=== PATIENT | female | born 1975 | race Caucasian/White ===

== ENCOUNTER 2017-01-20 19:36 | Emergency (ER) | payer MEDICAID ==
[~2017-01-20] VITALS: Ht 177.8 cm; Wt 61.5 kg
[~2017-01-20 19:36] MED LIST: ADAL40PE IJ; COLE1TAB2; OMEP20CA9 PO
[2017-01-20] MEDS ORDERED: MORPHINE SULFATE 4 MG/ML, 1ML ONE ×2 (20:24→22:40)
[2017-01-20] MEDS ORDERED: ONDANSETRON 2MG/ML, 2ML ONE (20:24)
[2017-01-20] MEDS ORDERED: DIPHENHYDRAMINE 50 MG/ML, 1ML ONE ×2 (20:28→22:42)
[2017-01-20] MEDS ORDERED: SODIUM CHLORIDE 0.9% 1,000ML IVBOLUS ONE (20:30)
[2017-01-20] MEDS ORDERED: ONDANSETRON 2MG/ML, 2ML IVPush ONE (20:30)
[2017-01-20] MEDS ORDERED: SODIUM CHLORIDE FLUSH 10ML SYR IVF ONE (20:30)
[2017-01-20] MEDS ORDERED: OMNIPAQUE 350 MG/ML, 100ML BOTTLE ONE (20:32)
[2017-01-20] MEDS: MORPHINE SULFATE 4 MG/ML, 1ML IVPush PRN ×2 (20:44→23:17)
[2017-01-20 21:03] LABS: BLOOD UREA NITROGEN 7 mg/dL (7-18)
[2017-01-20 23:22] VITALS: BP 98/62
[2017-01-20] MEDS ORDERED: DIPHENHYDRAMINE 50 MG/ML, 1ML IVPush ONE (23:30)
== END 2017-01-20 23:41 | disposition home or self-care (01) ==
LOC: ED 21:50
DX: K63.2 Fistula of intestine (principal); K50.00 Crohn's disease of small intestine without complications; Z88.0 Allergy status to penicillin; Z90.49 Acquired absence of other specified parts of digestive tract; Z88.5 Allergy status to narcotic agent; Z88.8 Allergy status to other drugs, medicaments and biological substances; Z90.710 Acquired absence of both cervix and uterus; F17.200 Nicotine dependence, unspecified, uncomplicated
CPT/HCPCS: 36415; 72193; 80048; 82040; 85025; 96361; 96374; 96375; 96376; 99285; J1200; J2405; J7030; Q9967

== ENCOUNTER 2017-03-12 21:22 | Emergency (ER) | payer MEDICAID ==
[~2017-03-12] VITALS: Ht 177.8 cm; Wt 60.2 kg
[2017-03-12] MEDS ORDERED: DIPHENHYDRAMINE 50 MG/ML, 1ML IVPush ONE (22:00)
[2017-03-12] MEDS ORDERED: SODIUM CHLORIDE FLUSH 10ML SYR IVF ONE (22:00)
[2017-03-12] MEDS ORDERED: MORPHINE SULFATE 4 MG/ML, 1ML ONE ×2 (22:03→23:07)
[2017-03-12] MEDS ORDERED: DIPHENHYDRAMINE 50 MG/ML, 1ML ONE (22:03)
[2017-03-12] MEDS: MORPHINE SULFATE 4 MG/ML, 1ML IVPush PRN ×2 (22:41→23:11)
[2017-03-12] MEDS ORDERED: VEDO300V IV (22:44)
[2017-03-12] MEDS ORDERED: CIPR500T87 PO (22:45)
[2017-03-12] MEDS ORDERED: METR500T PO (22:45)
[2017-03-12 22:51] LABS: BLOOD UREA NITROGEN 7 mg/dL (7-18)
[2017-03-12 22:58] LABS: HEMATOCRIT 45.5 % (34.6-47.8); HEMOGLOBIN 15.2 g/dL (11.7-16.4); WHITE BLOOD COUNT 10.6 x10^3/uL (3.4-10)
[2017-03-13 00:46] VITALS: BP 111/63
[2017-03-13] MEDS ORDERED: OMNIPAQUE 350 MG/ML, 100ML BOTTLE ONE (02:53)
== END 2017-03-13 00:51 | disposition home or self-care (01) ==
LOC: ED 23:04
DX: L03.315 Cellulitis of perineum (principal); K50.913 Crohn's disease, unspecified, with fistula; Z90.710 Acquired absence of both cervix and uterus
CPT/HCPCS: 36415; 72193; 80048; 82040; 85025; 96374; 96375; 96376; 99285; J1200; Q9967

== ENCOUNTER 2017-03-23 17:08 | Inpatient (IN) | payer MEDICAID ==
[~2017-03-23] VITALS: Ht 177.8 cm; Wt 60.0 kg
[~2017-03-23 17:08] MED LIST changes: +CIPR500T87 PO; +METR500T PO; +VEDO300V IV
[2017-03-23 18:00] VITALS: BP 101/68
[2017-03-23] MEDS ORDERED: OXYcodone 5 MG/5 ML ORAL.SOL UDC PO PRN (18:00)
[2017-03-23] MEDS ORDERED: ACETAMINOPHEN 325 MG TABLET PO PRN (18:00)
[2017-03-23] MEDS ORDERED: PLEASE ENTER HEIGHT AND WEIGHT MC SCH (18:00)
[2017-03-23] MEDS ORDERED: ONDANSETRON 2MG/ML, 2ML IVPush PRN (18:00)
[2017-03-23] MEDS ORDERED: morphine SULFATE 10 MG/ML, 1ML IV PRN (18:00)
[2017-03-23] MEDS ORDERED: PROMETHAZINE 25 MG/ML, 1ML IV PRN (18:00)
[2017-03-23] MEDS ORDERED: hydrALAzine 20 MG/ML, 1ML IV PRN (18:00)
[2017-03-23] MEDS ORDERED: LORazepam 2 MG/ML, 1ML IVPush PRN (18:00)
[2017-03-23] MEDS ORDERED: METOPROLOL 1 MG/ML, 5ML IV PRN (18:00)
[2017-03-23] MEDS ORDERED: LABETALOL 5MG/ML, 20ML IV PRN (18:00)
[2017-03-23] MEDS ORDERED: ALBUTEROL SULFATE 2.5 MG/3 ML NPPB PRN (18:00)
[2017-03-23] MEDS ORDERED: EPHEDRINE 50 MG/ML, 1ML IVPush PRN (18:00)
[2017-03-23] MEDS ORDERED: PROPOFOL 10 MG/ML, 20ML ONE (19:51)
[2017-03-23] MEDS ORDERED: BUPIVACAINE/PF 0.5% ONE (19:54)
[2017-03-23] MEDS ORDERED: EPINEPHRINE 1 MG/ML, 1ML ONE (19:54)
[2017-03-23] MEDS ORDERED: FENTANYL PF 100 MCG/2ML ONE ×4 (20:02→22:00)
[2017-03-23] MEDS ORDERED: MIDAZOLAM 1 MG/ML, 2ML ONE (20:02)
[2017-03-23] MEDS ORDERED: CEFOTETAN PMX 1GM/50ML 50 ML ONE (20:13)
[2017-03-23] MEDS ORDERED: ONDANSETRON 2MG/ML, 2ML ONE (20:15)
[2017-03-23] MEDS ORDERED: DEXAMETHASONE 4 MG/ML, 1ML ONE (20:15)
[2017-03-23] MEDS ORDERED: MORPHINE SULFATE 4 MG/ML, 1ML ONE (20:22)
[2017-03-23] MEDS ORDERED: MEPERIDINE/PF 25MG/0.5ML ONE (20:44)
[2017-03-23] MEDS: MEPERIDINE/PF 25MG/0.5ML IVPush PRN ×2 (20:46→21:55)
[2017-03-23] MEDS ORDERED: DIPHENHYDRAMINE 50 MG/ML, 1ML ONE (21:09)
[2017-03-23] MEDS ORDERED: OXYcodone 5 MG/5 ML ORAL.SOL UDC ONE (21:09)
[2017-03-23] MEDS ORDERED: MEPERIDINE/PF 50 MG/ML ONE (21:29)
[2017-03-23] MEDS ORDERED: DIPHENHYDRAMINE 50 MG/ML, 1ML IVPush ONE (21:30)
[2017-03-23] MEDS: FENTANYL PF 100 MCG/2ML IV PRN ×2 (21:50→21:59)
[2017-03-23] MEDS ORDERED: LORazepam 2 MG/ML, 1ML ONE (22:05)
[2017-03-23] MEDS ORDERED: OXYC-306 PO (23:02)
[2017-03-23] MEDS ORDERED: LIDO35.46 EXT (23:05)
[2017-03-23] MEDS ORDERED: SULF1TAB24 PO (23:14)
== END 2017-03-23 23:43 | disposition home or self-care (01) | DRG 348 ==
LOC: 4NOR 17:08
PROVIDERS: ADMIT Colon & Rectal Surgery; ATTEND Colon & Rectal Surgery
PROC: 0DQQ0ZZ Repair Anus, Open Approach (ICD-10-PCS; 2017-03-23)
PROC: 0D9Q0ZZ Drainage of Anus, Open Approach (ICD-10-PCS; principal; 2017-03-23 18:30)
DX: K50.914 Crohn's disease, unspecified, with abscess (principal); F17.210 Nicotine dependence, cigarettes, uncomplicated; K50.913 Crohn's disease, unspecified, with fistula; K21.9 Gastro-esophageal reflux disease without esophagitis; K60.3 Anal fistula; Z88.8 Allergy status to other drugs, medicaments and biological substances; Z90.49 Acquired absence of other specified parts of digestive tract; Z90.710 Acquired absence of both cervix and uterus
CPT/HCPCS: 87015; 87070; 87075; 87102; 87116; 87205; 87206; J0171; J1100; J2175; J2250; J2405; J2704; J3010; J3490; C1760; J1200; J2060; S0074

== ENCOUNTER 2017-05-30 23:31 | Inpatient (IN) | payer MEDICAID ==
[~2017-05-30] VITALS: Ht 177.8 cm; Wt 63.1 kg
[~2017-05-30 23:31] MED LIST changes: +LIDO35.46 EXT; +OXYC-302 PO; +OXYC-306 PO; +SULF1TAB24 PO
[2017-05-31] MEDS ORDERED: morphine SULFATE 10 MG/ML, 1ML ONE ×3 (00:29→04:45)
[2017-05-31] MEDS ORDERED: DIPHENHYDRAMINE 50 MG/ML, 1ML ONE (00:29)
[2017-05-31] MEDS ORDERED: ONDANSETRON 2MG/ML, 2ML ONE ×2 (00:29→19:42)
[2017-05-31 00:30] LABS: HEMATOCRIT 41.1 % (34.6-47.8); HEMOGLOBIN 13.6 g/dL (11.7-16.4); WHITE BLOOD COUNT 18.7 x10^3/uL (3.4-10)
[2017-05-31] MEDS ORDERED: SODIUM CHLORIDE 0.9% 1,000ML IVBOLUS ONE ×2 (00:30→02:30)
[2017-05-31] MEDS ORDERED: ONDANSETRON 2MG/ML, 2ML IVPush ONE (00:30)
[2017-05-31] MEDS ORDERED: DIPHENHYDRAMINE 50 MG/ML, 1ML IVPush ONE (00:30)
[2017-05-31] MEDS: MORPHINE SULFATE 4 MG/ML, 1ML IVPush PRN ×2 (00:36→01:58)
[2017-05-31 00:42] LABS: BLOOD UREA NITROGEN 10 mg/dL (7-18)
[2017-05-31] MEDS ORDERED: OMNIPAQUE 350 MG/ML, 100ML BOTTLE ONE (01:06)
[2017-05-31] MEDS ORDERED: METRONIDAZOLE PMX 500MG/100ML 100 ML IV ONE (01:30)
[2017-05-31] MEDS ORDERED: PIPERACILLIN/TAZO/PMX 4.5GM 100 ML IV ONE (01:30)
[2017-05-31] MEDS ORDERED: ACETAMINOPHEN 325 MG TABLET PO PRN ×2 (02:30→20:00)
[2017-05-31] MEDS ORDERED: ONDANSETRON 2MG/ML, 2ML IVPush PRN ×2 (02:30→20:00)
[2017-05-31] MEDS: PIPERACILLIN/TAZO/PMX 3.375GM 50 ML IV SCH ×3 (02:49→14:33)
[2017-05-31] MEDS ORDERED: POTASSIUM CHLORIDE 20 MEQ TAB.ER.PRT PO ONE (03:00)
[2017-05-31] MEDS ORDERED: POTASSIUM CHLORIDE 20 MEQ TAB.ER.PRT ONE (03:14)
[2017-05-31] MEDS: LACTATED RINGERS 1,000 ML IV SCH ×2 (03:32→10:30)
[2017-05-31] MEDS: morphine SULFATE 10 MG/ML, 1ML IVPush PRN ×5 (04:48→17:44)
[2017-05-31 07:00] VITALS: BP 95/58
[2017-05-31] MEDS ORDERED: OMEPRAZOLE 20 MG CAPSULE.DR PO SCH (09:00)
[2017-05-31] MEDS ORDERED: LIDOCAINE GEL 2%, 5ML TP ONE (09:30)
[2017-05-31] MEDS: DIPHENHYDRAMINE 50 MG/ML, 1ML IVPush PRN ×2 (09:38→17:44)
[2017-05-31 13:53] VITALS: BP 90/52
[2017-05-31] MEDS ORDERED: MIDAZOLAM 1 MG/ML, 2ML ONE ×2 (19:37→19:38)
[2017-05-31] MEDS ORDERED: FENTANYL PF 100 MCG/2ML ONE ×4 (19:37→20:52)
[2017-05-31] MEDS ORDERED: SUCCINYLCHOLINE 20 MG/ML, 10ML ONE (19:40)
[2017-05-31] MEDS ORDERED: ROCURONIUM 10 MG/ML,10ML ONE (19:40)
[2017-05-31] MEDS ORDERED: PROPOFOL 10 MG/ML, 20ML ONE (19:40)
[2017-05-31] MEDS ORDERED: DEXAMETHASONE 4 MG/ML, 1ML ONE ×2 (19:41)
[2017-05-31] MEDS ORDERED: morphine SULFATE 10 MG/ML, 1ML IV PRN (20:00)
[2017-05-31] MEDS ORDERED: PROMETHAZINE 25 MG/ML, 1ML IV PRN (20:00)
[2017-05-31] MEDS ORDERED: MEPERIDINE/PF 25MG/0.5ML IVPush PRN (20:00)
[2017-05-31] MEDS ORDERED: OXYcodone 5 MG/5 ML ORAL.SOL UDC PO PRN (20:00)
[2017-05-31] MEDS ORDERED: SODIUM CHLORIDE 0.9% PF 10ML ONE (20:08)
[2017-05-31] MEDS ORDERED: CEFAZOLIN 1,000 MG ONE ×2 (20:08)
[2017-05-31] MEDS ORDERED: EPINEPHRINE 1 MG/ML, 1ML ONE (20:18)
[2017-05-31] MEDS ORDERED: BUPIVACAINE/PF 0.5% ONE (20:18)
[2017-05-31] MEDS ORDERED: MEPERIDINE/PF 50 MG/ML ONE (20:32)
[2017-05-31] MEDS ORDERED: OXYcodone 5 MG/5 ML ORAL.SOL UDC ONE (20:32)
[2017-05-31] MEDS: FENTANYL PF 100 MCG/2ML IV PRN ×2 (20:53→21:15)
[2017-05-31 21:24] VITALS: BP 97/73
[2017-05-31] MEDS ORDERED: SULF1TAB24 PO (21:36)
== END 2017-05-31 21:58 | disposition left against medical advice (07) | DRG 394 ==
LOC: ED 23:57 → EDIP 05-31 02:16 → SUATTDRO 05-31 02:27 → 4NOR 05-31 05:03
PROVIDERS: ADMIT Hospitalist; ATTEND Hospitalist
PROC: 0HB9XZZ Excision of Perineum Skin, External Approach (ICD-10-PCS; principal; 2017-05-31 19:30)
DX: K61.2 Anorectal abscess (principal); E44.0 Moderate protein-calorie malnutrition; K50.10 Crohn's disease of large intestine without complications; E87.6 Hypokalemia; Z68.20 Body mass index [BMI] 20.0-20.9, adult; Z88.0 Allergy status to penicillin; Z88.8 Allergy status to other drugs, medicaments and biological substances; K62.89 Other specified diseases of anus and rectum; Z87.891 Personal history of nicotine dependence; Z90.710 Acquired absence of both cervix and uterus
CPT/HCPCS: 36415; 72193; 80048; 82040; 83605; 85025; 87040; J0171; J0690; J1100; J2175; J2250; J2405; J2543; J2704; J3010; J3490; Q9967; J0330; J1200; J2270; J7030; J7120

== ENCOUNTER 2017-06-10 02:48 | Emergency (ER) | payer MEDICAID ==
[~2017-06-10] VITALS: Ht 182.9 cm; Wt 57.2 kg
[2017-06-10] MEDS ORDERED: L.E.T SOLUTION TP ONE ×2 (03:30→03:37)
[2017-06-10] MEDS ORDERED: MORPHINE SULFATE 4 MG/ML, 1ML ONE ×3 (03:36→05:28)
[2017-06-10] MEDS ORDERED: DIPHENHYDRAMINE 50 MG/ML, 1ML ONE (03:36)
[2017-06-10] MEDS ORDERED: ONDANSETRON 2MG/ML, 2ML ONE (03:36)
[2017-06-10] MEDS: MORPHINE SULFATE 4 MG/ML, 1ML IVPush PRN ×2 (03:44→04:10)
[2017-06-10] MEDS ORDERED: DIPHENHYDRAMINE 50 MG/ML, 1ML IVPush ONE (04:00)
[2017-06-10] MEDS ORDERED: SODIUM CHLORIDE FLUSH 10ML SYR IVF ONE (04:00)
[2017-06-10] MEDS ORDERED: ONDANSETRON 2MG/ML, 2ML IVPush ONE (04:00)
[2017-06-10] MEDS ORDERED: CEFOTETAN PMX 1GM/50ML 50 ML IV ONE (04:00)
[2017-06-10] MEDS ORDERED: ETOMIDATE 20 MG/10 ML IVPush ONE (04:00)
[2017-06-10] MEDS ORDERED: SODIUM CHLORIDE 0.9% 1,000ML IVBOLUS ONE (04:00)
[2017-06-10 04:01] LABS: HEMATOCRIT 34.6 % (34.6-47.8); HEMOGLOBIN 11.5 g/dL (11.7-16.4); WHITE BLOOD COUNT 20.3 x10^3/uL (3.4-10)
[2017-06-10] MEDS ORDERED: ETOMIDATE 20 MG/10 ML ONE (04:01)
[2017-06-10 04:06] LABS: ASPARTATE AMINO TRANSFERASE 9 U/L (15-37); BLOOD UREA NITROGEN 15 mg/dL (7-18)
[2017-06-10] MEDS ORDERED: CEFOTETAN PMX 1GM/50ML 50 ML ONE (04:26)
[2017-06-10 04:34] VITALS: BP 105/50
[2017-06-10] MEDS ORDERED: KETOROLAC 30 MG/1 ML ONE (05:28)
[2017-06-10] MEDS ORDERED: KETOROLAC 60 MG/2 ML IVPush ONE (05:30)
[2017-06-10] MEDS ORDERED: morphine SULFATE 10 MG/ML, 1ML IVPush ONE (05:30)
== END 2017-06-10 06:54 | disposition home or self-care (01) ==
LOC: ED 03:11
DX: K61.0 Anal abscess (principal); K50.90 Crohn's disease, unspecified, without complications; Z90.49 Acquired absence of other specified parts of digestive tract
CPT/HCPCS: 36415; 56405; 80053; 85025; 96361; 96365; 96375; 96376; 99152; 99153; 99285; J1200; J1885; J2270; J2405; J7030; S0074

== ENCOUNTER → 2017-06-27 | Outpatient (CLI) | payer MEDICAID | END | disposition home or self-care (01) | LOC: WOUND 13:49 | PROVIDERS: ATTEND Internal Medicine | DX: T81.89XD Other complications of procedures, not elsewhere classified, subsequent encounter (principal); Z90.49 Acquired absence of other specified parts of digestive tract; Z90.710 Acquired absence of both cervix and uterus; Z87.891 Personal history of nicotine dependence; Y83.8 Other surgical procedures as the cause of abnormal reaction of the patient, or of later complication, without mention of misadventure at the time of the procedure | CPT/HCPCS: 99214 ==

== ENCOUNTER 2017-06-30 12:20 | Inpatient (IN) | payer MEDICAID ==
[~2017-06-30] VITALS: Ht 177.8 cm; Wt 67.0 kg
[~2017-06-30 12:20] MED LIST changes: +BUPIVACAINE/PF 0.5% ONE
[2017-06-30 13:01] VITALS: BP 103/69
[2017-06-30] MEDS ORDERED: LACTATED RINGERS 1,000 ML IV SCH (13:06)
[2017-06-30] MEDS ORDERED: CIPRO PO (13:08)
[2017-06-30] MEDS ORDERED: ROCURONIUM 10 MG/ML,10ML ONE (13:28)
[2017-06-30] MEDS ORDERED: PROPOFOL 10 MG/ML, 20ML ONE (13:29)
[2017-06-30] MEDS ORDERED: LIDOCAINE-MPF 2% ,5ML ONE (13:29)
[2017-06-30] MEDS ORDERED: CEFOTETAN PMX 1GM/50ML 50 ML ONE (13:47)
[2017-06-30] MEDS ORDERED: FENTANYL PF 100 MCG/2ML ONE ×3 (13:53→14:35)
[2017-06-30] MEDS ORDERED: BUPIVACAINE/PF-EPI 0.5% 1:200K INFIL ONE (14:01)
[2017-06-30] MEDS ORDERED: DEXAMETHASONE 4 MG/ML, 1ML ONE ×2 (14:01)
[2017-06-30] MEDS ORDERED: ONDANSETRON 2MG/ML, 2ML ONE (14:02)
[2017-06-30] MEDS ORDERED: GLYCOPYRROLATE 0.4 MG/2 ML, 2ML ONE (14:21)
[2017-06-30] MEDS ORDERED: NEOSTIGMINE 1 MG/ML, 10ML ONE (14:21)
[2017-06-30] MEDS: FENTANYL PF 100 MCG/2ML IV PRN ×2 (14:38→14:48)
[2017-06-30] MEDS ORDERED: MEPERIDINE/PF 50 MG/ML ONE (14:40)
[2017-06-30] MEDS: MEPERIDINE/PF 25MG/0.5ML IVPush PRN ×2 (14:43→14:58)
[2017-06-30] MEDS ORDERED: DIPHENHYDRAMINE 50 MG/ML, 1ML ONE (14:59)
[2017-06-30] MEDS ORDERED: ACETAMINOPHEN 650 MG/20.3 ML UDC ONE (14:59)
[2017-06-30] MEDS ORDERED: OXYcodone 5 MG/5 ML ORAL.SOL UDC ONE (15:00)
[2017-06-30] MEDS ORDERED: ONDANSETRON 2MG/ML, 2ML IVPush PRN (15:00)
[2017-06-30] MEDS ORDERED: morphine SULFATE 10 MG/ML, 1ML ONE ×2 (15:00→15:44)
[2017-06-30] MEDS ORDERED: DIAZEPAM 5 MG/ML, 2ML IVPush PRN (15:00)
[2017-06-30] MEDS ORDERED: HYDROcodone/APAP 7.5-325MG/15ML UDC PO PRN (15:00)
[2017-06-30] MEDS: morphine SULFATE 10 MG/ML, 1ML IV PRN ×6 (15:04→20:59)
[2017-06-30] MEDS ORDERED: OXYcodone 5 MG/5 ML ORAL.SOL UDC PO ONE (15:05)
[2017-06-30] MEDS ORDERED: ACETAMINOPHEN 650 MG/20.3 ML UDC PO ONE (15:06)
[2017-06-30] MEDS ORDERED: LORazepam 2 MG/ML, 1ML ONE (15:14)
[2017-06-30] MEDS ORDERED: LORazepam 2 MG/ML, 1ML IVPush ONE (15:30)
[2017-06-30] MEDS ORDERED: DIPHENHYDRAMINE 50 MG/ML, 1ML IVPush ONE (16:00)
[2017-06-30] MEDS ORDERED: ONDANSETRON 2MG/ML, 2ML IV PRN (17:00)
[2017-06-30] MEDS ORDERED: LORazepam 1MG TABLET PO PRN (17:00)
[2017-06-30] MEDS ORDERED: ACETAMINOPHEN 650 MG SUPP PR PRN (17:00)
[2017-06-30] MEDS ORDERED: DIPHENHYDRAMINE 50 MG/ML, 1ML IV PRN (17:00)
[2017-06-30] MEDS ORDERED: ACETAMINOPHEN 325 MG TABLET PO PRN (17:00)
[2017-06-30] MEDS ORDERED: LORazepam 2 MG/ML, 1ML IV PRN (17:00)
[2017-06-30] MEDS: DIPHENHYDRAMINE 25 MG CAPSULE PO PRN (17:20)
[2017-06-30] MEDS: KETOROLAC 30 MG/1 ML IV PRN ×2 (17:23→23:21)
[2017-06-30] MEDS: POTASSIUM CHLORIDE 20 MEQ in SODIUM CHLORIDE 0.9% 1,000 ML IV SCH (18:01)
[2017-06-30] MEDS: OXYcodone/APAP 5/325MG TABLET PO PRN (18:52)
[2017-06-30 18:57] VITALS: BP 116/72
[2017-06-30] MEDS: OMEPRAZOLE 20 MG CAPSULE.DR PO SCH (20:54)
[2017-06-30 23:47] VITALS: BP 102/64
[2017-07-01] MEDS: CEFOTETAN PMX 1GM/50ML 50 ML IVPB SCH ×2 (01:16→13:30)
[2017-07-01] MEDS: OXYcodone/APAP 5/325MG TABLET PO PRN ×6 (01:22→22:05)
[2017-07-01] MEDS: DIPHENHYDRAMINE 25 MG CAPSULE PO PRN ×3 (01:22→18:09)
[2017-07-01 03:34] VITALS: BP 95/60
[2017-07-01] MEDS: KETOROLAC 30 MG/1 ML IV PRN (05:37)
[2017-07-01 06:10] LABS: MEAN CORPUSCULAR HEMOGLOBIN 34.5 pg (27.0-34.8); MEAN CORPUSCULAR HGB CONC 33.2 g/dL (32.4-35.8); MEAN CORPUSCULAR VOLUME 103.8 fL (80-100); MEAN PLATELET VOLUME 7.6 fL (7.4-10.4); PLATELET COUNT 294 x10^3/uL (130-400); RED BLOOD COUNT 3.09 x10^6/uL (3.82-5.3); RED CELL DISTRIBUTION WIDTH 17.1 % (9.6-15.2)
[2017-07-01 06:23] LABS: CHLORIDE 107 mmol/L (98-107)
[2017-07-01 06:29] LABS: ALBUMIN 2.5 g/dL (3.4-5.0); ANION GAP 9 mmol/L (5-15); CREATININE 1.44 mg/dL (0.55-1.02)
[2017-07-01 06:30] LABS: BASOPHILS # (AUTO) 0.22 x10^3/uL (0-0.1); BASOPHILS % (AUTO) 1 % (0-1); EOSINOPHILS % (AUTO) 0 % (1-7); LYMPHOCYTES % (AUTO) 4 % (22-44); MD SCAN; MONOCYTES # (AUTO) 0.77 x10^3/uL (0.2-0.8); MONOCYTES % (AUTO) 4 % (2-9); NEUTROPHILS # (AUTO) 15.87 x10^3/uL (1.8-6.8); NEUTROPHILS % (AUTO) 90 % (42-75)
[2017-07-01 08:14] VITALS: BP 101/65
[2017-07-01] MEDS: OMEPRAZOLE 20 MG CAPSULE.DR PO SCH ×2 (08:16→21:37)
[2017-07-01] MEDS: ENOXAPARIN 40 MG/0.4 ML SQ SCH (08:16)
[2017-07-01] MEDS: POTASSIUM CHLORIDE 20 MEQ in SODIUM CHLORIDE 0.9% 1,000 ML IV SCH (12:08)
[2017-07-01 21:40] VITALS: BP 109/74
[2017-07-02 03:51] VITALS: BP 107/71
[2017-07-02] MEDS: OXYcodone/APAP 5/325MG TABLET PO PRN ×2 (03:51→09:43)
[2017-07-02 05:42] LABS: ANION GAP 8 mmol/L (5-15); CALCIUM 7.4 mg/dL (8.5-10.1); CHLORIDE 111 mmol/L (98-107)
[2017-07-02 05:44] LABS: CREATININE 1.06 mg/dL (0.55-1.02)
[2017-07-02 06:04] LABS: BASOPHILS # (AUTO) 0.01 x10^3/uL (0-0.1); BASOPHILS % (AUTO) 0 % (0-1); EOSINOPHILS # (AUTO) 0.09 x10^3/uL (0-0.4); EOSINOPHILS % (AUTO) 1 % (1-7); LYMPHOCYTES # (AUTO) 1.54 x10^3/uL (1-3.4); LYMPHOCYTES % (AUTO) 20 % (22-44); MD NO; MEAN CORPUSCULAR HEMOGLOBIN 34.1 pg (27.0-34.8); MEAN CORPUSCULAR HGB CONC 33.2 g/dL (32.4-35.8); MEAN CORPUSCULAR VOLUME 102.7 fL (80-100); MEAN PLATELET VOLUME 7.8 fL (7.4-10.4); MONOCYTES # (AUTO) 0.73 x10^3/uL (0.2-0.8); MONOCYTES % (AUTO) 9 % (2-9); NEUTROPHILS # (AUTO) 5.44 x10^3/uL (1.8-6.8); NEUTROPHILS % (AUTO) 70 % (42-75); PLATELET COUNT 230 x10^3/uL (130-400); RED BLOOD COUNT 2.65 x10^6/uL (3.82-5.3); RED CELL DISTRIBUTION WIDTH 16.8 % (9.6-15.2)
[2017-07-02] MEDS: OMEPRAZOLE 20 MG CAPSULE.DR PO SCH (08:13)
[2017-07-02] MEDS: ENOXAPARIN 40 MG/0.4 ML SQ SCH (08:14)
[2017-07-02] MEDS: POTASSIUM CHLORIDE 20 MEQ in SODIUM CHLORIDE 0.9% 1,000 ML IV SCH (09:24)
[2017-07-02 09:42] VITALS: BP 106/71
[2017-07-02 09:43] VITALS: BP 116/75
== END 2017-07-02 10:29 | disposition home or self-care (01) | DRG 330 ==
LOC: ORIP 12:20 → 4NOR 16:38
PROVIDERS: ADMIT Colon & Rectal Surgery; ATTEND Colon & Rectal Surgery
PROC: 0WJP4ZZ Inspection of Gastrointestinal Tract, Percutaneous Endoscopic Approach (ICD-10-PCS; 2017-06-30)
PROC: 0D1N4Z4 Bypass Sigmoid Colon to Cutaneous, Percutaneous Endoscopic Approach (ICD-10-PCS; principal; 2017-06-30 15:00)
DX: K50.90 Crohn's disease, unspecified, without complications (principal); L02.215 Cutaneous abscess of perineum
CPT/HCPCS: 36415; 80048; 82040; 83735; 85025; J1100; J1650; J1885; J2175; J2405; J2704; J2710; J3010; J3480; J3490; J1200; J2060; J2270; J7030; J7120; Q0163; S0074

== ENCOUNTER → 2017-08-15 | Outpatient (CLI) | payer MEDICAID ==
[~2017-08-15] MED LIST changes: -BUPIVACAINE/PF 0.5% ONE; +CIPRO PO
== END | disposition home or self-care (01) ==
LOC: WOUND 14:50
PROVIDERS: ATTEND Internal Medicine
DX: Z43.3 Encounter for attention to colostomy (principal); Z90.710 Acquired absence of both cervix and uterus; Z87.891 Personal history of nicotine dependence; Z90.49 Acquired absence of other specified parts of digestive tract
CPT/HCPCS: 99214

== ENCOUNTER → 2017-08-17 | Outpatient (CLI) | payer MEDICAID | END | disposition home or self-care (01) | LOC: WOUND 13:29 | PROVIDERS: ATTEND Internal Medicine | DX: T81.89XD Other complications of procedures, not elsewhere classified, subsequent encounter (principal); Z90.710 Acquired absence of both cervix and uterus; Z90.49 Acquired absence of other specified parts of digestive tract; Z87.891 Personal history of nicotine dependence; Y83.8 Other surgical procedures as the cause of abnormal reaction of the patient, or of later complication, without mention of misadventure at the time of the procedure | CPT/HCPCS: 87070; 87077; 87186; 87205; 99214 ==

== ENCOUNTER 2018-06-05 23:01 | Emergency (ER) | payer MEDICAID ==
[~2018-06-05] VITALS: Ht 177.8 cm; Wt 66.0 kg
[2018-06-05] MEDS ORDERED: DIPHENHYDRAMINE 25 MG CAPSULE ONE (23:46)
[2018-06-05] MEDS ORDERED: OXYcodone/APAP 5/325MG TABLET ONE (23:46)
[2018-06-06] LABS: BASOPHILS # (AUTO) 0.06 x10^3/uL (0-0.1); BASOPHILS % (AUTO) 1 % (0-1); EOSINOPHILS # (AUTO) 0.31 x10^3/uL (0-0.4); EOSINOPHILS % (AUTO) 3 % (1-7); LYMPHOCYTES % (AUTO) 18 % (22-44); MD NO; MEAN CORPUSCULAR HEMOGLOBIN 33.9 pg (27.0-34.8); MEAN CORPUSCULAR HGB CONC 34.1 g/dL (32.4-35.8); MEAN CORPUSCULAR VOLUME 99.5 fL (80-100); MEAN PLATELET VOLUME 7.6 fL (7.4-10.4); MONOCYTES # (AUTO) 0.94 x10^3/uL (0.2-0.8); MONOCYTES % (AUTO) 8 % (2-9); NEUTROPHILS # (AUTO) 8.39 x10^3/uL (1.8-6.8); NEUTROPHILS % (AUTO) 71 % (42-75); PLATELET COUNT 292 x10^3/uL (130-400)
[2018-06-06] MEDS ORDERED: OXYcodone/APAP 5/325MG TABLET PO ONE
[2018-06-06] MEDS ORDERED: DIPHENHYDRAMINE 25 MG CAPSULE PO ONE
[2018-06-06 00:12] LABS: CHLORIDE 104 mmol/L (98-107)
[2018-06-06 00:13] LABS: ALANINE AMINOTRANSFERASE 27 U/L (12-78); ALBUMIN 3.4 g/dL (3.4-5.0); ANION GAP 7 mmol/L (5-15); CALCIUM 8.6 mg/dL (8.5-10.1); CREATININE 0.73 mg/dL (0.55-1.02)
[2018-06-06 00:15] LABS: ALKALINE PHOSPHATASE 99 U/L (45-117); BILIRUBIN,TOTAL 0.2 mg/dL (0.2-1.0); TOTAL PROTEIN 7.7 g/dL (6.4-8.2)
[2018-06-06] MEDS ORDERED: OMNIPAQUE 350 MG/ML, 100ML BOTTLE ONE (00:56)
[2018-06-06 01:10] VITALS: BP 123/74
== END 2018-06-06 01:52 | disposition home or self-care (01) ==
LOC: ED 23:59
DX: K61.1 Rectal abscess (principal); K50.90 Crohn's disease, unspecified, without complications; F17.210 Nicotine dependence, cigarettes, uncomplicated
CPT/HCPCS: 36415; 72193; 80053; 85025; 99284; Q0163; Q9967

== ENCOUNTER 2018-11-05 20:54 | Emergency (ER) | payer MEDICAID ==
[~2018-11-05] VITALS: Ht 177.8 cm; Wt 65.8 kg
[2018-11-05] MEDS ORDERED: DIPHENHYDRAMINE 50 MG/ML, 1ML IVPush ONE (21:30)
[2018-11-05] MEDS ORDERED: ONDANSETRON 2MG/ML, 2ML IVPush ONE (21:30)
[2018-11-05] MEDS ORDERED: MORPHINE SULFATE 4 MG/ML, 1ML ONE ×2 (21:34→23:11)
[2018-11-05] MEDS ORDERED: DIPHENHYDRAMINE 50 MG/ML, 1ML ONE (21:34)
[2018-11-05] MEDS ORDERED: ONDANSETRON 2MG/ML, 2ML ONE (21:34)
[2018-11-05] MEDS: MORPHINE SULFATE 4 MG/ML, 1ML IVPush PRN ×2 (21:40→23:13)
[2018-11-05 21:49] LABS: BASOPHILS # (AUTO) 0.03 x10^3/uL (0-0.1); BASOPHILS % (AUTO) 0 % (0-1); EOSINOPHILS # (AUTO) 0.32 x10^3/uL (0-0.4); EOSINOPHILS % (AUTO) 4 % (1-7); LYMPHOCYTES # (AUTO) 1.35 x10^3/uL (1-3.4); LYMPHOCYTES % (AUTO) 15 % (22-44); MD NO; MEAN CORPUSCULAR HEMOGLOBIN 33.6 pg (27.0-34.8); MEAN CORPUSCULAR HGB CONC 32.9 g/dL (32.4-35.8); MEAN CORPUSCULAR VOLUME 102.1 fL (80-100); MEAN PLATELET VOLUME 7.4 fL (7.4-10.4); MONOCYTES # (AUTO) 0.48 x10^3/uL (0.2-0.8); MONOCYTES % (AUTO) 5 % (2-9); NEUTROPHILS # (AUTO) 6.89 x10^3/uL (1.8-6.8); NEUTROPHILS % (AUTO) 76 % (42-75); PLATELET COUNT 332 x10^3/uL (130-400); RED CELL DISTRIBUTION WIDTH 14.5 % (9.6-15.2)
[2018-11-05 21:59] LABS: ALBUMIN 2.9 g/dL (3.4-5.0); ANION GAP 10 mmol/L (5-15); CALCIUM 7.6 mg/dL (8.5-10.1); CHLORIDE 110 mmol/L (98-107); CREATININE 0.65 mg/dL (0.55-1.02)
[2018-11-05] MEDS ORDERED: OMNIPAQUE 350 MG/ML, 100ML BOTTLE ONE (22:00)
[2018-11-05] MEDS ORDERED: MORPHINE SULFATE 4 MG/ML, 1ML IVPush ONE (23:00)
[2018-11-05] MEDS ORDERED: AMOXICILLIN/CLAV 875-125MG TABLET PO SCH (23:00)
[2018-11-05] MEDS ORDERED: AMOXICILLIN/CLAV 875-125MG TABLET ONE (23:11)
[2018-11-05 23:21] VITALS: BP 126/74
--- NOTE | 2018-11-05 23:22 | NUR ---
Patient/Caregiver given discharge instructions and they have confirmed that they understand the instructions. Patient ambulatory with steady gait.
== END 2018-11-05 23:29 | disposition home or self-care (01) ==
LOC: ED 21:46
DX: K50.113 Crohn's disease of large intestine with fistula (principal); Z90.89 Acquired absence of other organs; Z90.710 Acquired absence of both cervix and uterus
CPT/HCPCS: 36415; 72193; 80048; 82040; 85025; 96374; 96375; 96376; 99284; J1200; J2405; Q9967; J2270

== ENCOUNTER 2019-01-19 12:47 | Outpatient (CLI) | payer MEDICAID ==
[2019-01-19] MEDS ORDERED: CALC-533 PO (14:48)
[2019-01-19] MEDS ORDERED: VARE1TAB21 PO (14:48)
[2019-01-19] MEDS ORDERED: POTA99TA8 PO (14:48)
[2019-01-19] MEDS ORDERED: METH10TA54 PO (14:48)
[2019-01-19] MEDS ORDERED: FOLI-17 PO (14:48)
[2019-01-19] MEDS ORDERED: CYAN25003 PO (14:48)
[2019-01-19] MEDS ORDERED: USTE45DI IM (14:48)
[2019-01-19] MEDS ORDERED: CBD TINCTURE PO (14:48)
[2019-01-19] MEDS ORDERED: CHOL100012 PO (14:48)
[2019-01-19] MEDS ORDERED: OMEP20TA62 PO (14:48)
[2019-01-27] MEDS ORDERED: OXYC-302 PO (11:40)
[2019-01-27] MEDS ORDERED: IBUP-1222 PO (11:44)
[2019-01-27] MEDS ORDERED: LIDO5CRE26 TP (11:56)
[2019-03-26] MEDS ORDERED: COLE1TAB PO (15:55)
[2019-03-26] MEDS ORDERED: BUDE3CAP6 PO (15:55)
== END 2019-01-19 23:59 | disposition home or self-care (01) ==
LOC: STAR 12:47
PROVIDERS: ATTEND Colon & Rectal Surgery
DX: Z01.818 Encounter for other preprocedural examination (principal)
CPT/HCPCS: 93005

== ENCOUNTER 2019-01-25 08:12 | Inpatient (IN) | payer MEDICAID ==
[~2019-01-25] VITALS: Ht 175.3 cm; Wt 74.0 kg
[2019-01-27 12:12] VITALS: BP 91/57
== END 2019-01-27 12:30 | disposition home or self-care (01) | DRG 330 ==
LOC: ORIP 08:12 → 4NOR 14:19
PROVIDERS: ADMIT Colon & Rectal Surgery; ATTEND Colon & Rectal Surgery
PROC: 0DBP0ZZ Excision of Rectum, Open Approach (ICD-10-PCS; principal; 2019-01-25)
PROC: 0DSN0ZZ Reposition Sigmoid Colon, Open Approach (ICD-10-PCS; 2019-01-25)
PROC: 0WQF0ZZ Repair Abdominal Wall, Open Approach (ICD-10-PCS; 2019-01-25)
PROC: 3E0T3BZ Introduction of Anesthetic Agent into Peripheral Nerves and Plexi, Percutaneous Approach (ICD-10-PCS; 2019-01-25)
PROC: 0DBN0ZZ Excision of Sigmoid Colon, Open Approach (ICD-10-PCS; 2019-01-25)
DX: Z43.3 Encounter for attention to colostomy (principal); K50.90 Crohn's disease, unspecified, without complications; K43.5 Parastomal hernia without obstruction or gangrene; Z88.0 Allergy status to penicillin; Z88.8 Allergy status to other drugs, medicaments and biological substances; K21.9 Gastro-esophageal reflux disease without esophagitis; F17.200 Nicotine dependence, unspecified, uncomplicated; K60.3 Anal fistula
CPT/HCPCS: 36415; J3490; 80048; 83735; 85025; 86850; 86900; 88304; 88307; G0378; J1100; J1650; J1885; J2175; J2250; J2405; J2704; J2795; J3010; J8501; J1200; J2270; J2800; J3475; J7120; Q0163

== ENCOUNTER 2019-04-11 22:29 | Emergency (ER) | payer MEDICAID ==
[~2019-04-11] VITALS: Ht 175.3 cm; Wt 64.8 kg
[~2019-04-11 22:29] MED LIST changes: +BUDE3CAP6 PO; +CALC-533 PO; +CBD TINCTURE PO; +CHOL100012 PO; +COLE1TAB PO; +CYAN25003 PO; +FOLI-17 PO; +IBUP-1222 PO; +LIDO5CRE26 TP; +METH10TA54 PO; +OMEP20TA62 PO; +POTA99TA8 PO; +USTE45DI IM; +VARE1TAB21 PO
--- NOTE | 2019-04-11 23:20 | NUR ---
PT PRESENTED WITH C/O PERIANAL ABSCESS, HAD 2 DRAINS PLACED RECENTLY FOR THE ABSCESSES.PT CURRENTLY ONLY HAS [address] HX OF CROHNS. MONITORS APPLIED, SIDERAILS UP X2, CALL LIGHT WITHIN REACH
[2019-04-12] MEDS ORDERED: DIPHENHYDRAMINE 25 MG CAPSULE ONE (00:46)
[2019-04-12] MEDS ORDERED: OXYcodone/APAP 5/325MG TABLET ONE (00:47)
--- NOTE | 2019-04-12 00:52 | NUR ---
PT MEDICATED PER MAR
[2019-04-12] MEDS ORDERED: MIDAZOLAM 1 MG/ML, 2ML IVPush ONE (01:00)
[2019-04-12] MEDS ORDERED: DIPHENHYDRAMINE 25 MG CAPSULE PO ONE (01:00)
[2019-04-12] MEDS ORDERED: LIDOCAINE-MPF 1%, 5ML INFIL ONE (01:00)
[2019-04-12] MEDS ORDERED: OXYcodone/APAP 5/325MG TABLET PO ONE (01:00)
[2019-04-12] MEDS ORDERED: LIDOCAINE-MPF 1%, 5ML ONE (01:06)
[2019-04-12] MEDS ORDERED: MIDAZOLAM 1 MG/ML, 2ML ONE (01:06)
--- NOTE | 2019-04-12 02:06 | NUR ---
Break rn: Md and Pa at bedside for I&D. Versed given per md order pre procedure.
[2019-04-12 02:30] VITALS: BP 90/57
== END 2019-04-12 03:14 | disposition home or self-care (01) ==
LOC: ED 04-12 00:11
DX: K61.0 Anal abscess (principal); K61.1 Rectal abscess; K50.90 Crohn's disease, unspecified, without complications; Z90.49 Acquired absence of other specified parts of digestive tract; Z90.710 Acquired absence of both cervix and uterus
CPT/HCPCS: 46050; 96374; 99284; J2250; Q0163

== ENCOUNTER 2019-05-10 08:04 | Day surgery (SDC) | payer MEDICAID ==
[~2019-05-10] VITALS: Ht 177.8 cm; Wt 62.6 kg
[~2019-05-10 08:04] MED LIST changes: +BUPIVACAINE/EPI 0.5% 1:200K ONE
[2019-05-10] MEDS ORDERED: ACETAMINOPHEN 500 MG TABLET PO ONE (08:30)
[2019-05-10] MEDS ORDERED: PLEASE ENTER HEIGHT AND WEIGHT MC SCH (08:30)
[2019-05-10 08:55] VITALS: BP 109/76
[2019-05-10] MEDS ORDERED: LABETALOL 5MG/ML, 20ML IV PRN (09:00)
[2019-05-10] MEDS ORDERED: PROMETHAZINE 25 MG/ML, 1ML IV PRN (09:00)
[2019-05-10] MEDS ORDERED: EPHEDRINE 50 MG/ML, 1ML IVPush PRN (09:00)
[2019-05-10] MEDS ORDERED: MEPERIDINE/PF 25MG/ML,1ML IVPush PRN (09:00)
[2019-05-10] MEDS ORDERED: FENTANYL PF 100 MCG/2ML IV PRN (09:00)
[2019-05-10] MEDS ORDERED: hydrALAzine 20 MG/ML, 1ML IV PRN (09:00)
[2019-05-10] MEDS ORDERED: ONDANSETRON 2MG/ML, 2ML IV PRN (09:00)
[2019-05-10] MEDS ORDERED: LACTATED RINGERS 1,000 ML IV SCH (09:06)
[2019-05-10] MEDS ORDERED: FENTANYL PF 100 MCG/2ML ONE ×4 (09:42→10:17)
[2019-05-10] MEDS ORDERED: MIDAZOLAM 1 MG/ML, 2ML ONE (09:42)
[2019-05-10] MEDS ORDERED: PROPOFOL 10 MG/ML, 20ML ONE ×2 (09:44→10:42)
[2019-05-10] MEDS ORDERED: DEXAMETHASONE 4 MG/ML, 1ML ONE (09:44)
[2019-05-10] MEDS ORDERED: CEFAZOLIN 1,000 MG ONE (09:44)
[2019-05-10] MEDS ORDERED: ONDANSETRON 2MG/ML, 2ML ONE (09:44)
[2019-05-10] MEDS ORDERED: KETOROLAC 30 MG/1 ML ONE (09:58)
[2019-05-10] MEDS ORDERED: LIDOCAINE-MPF 2% ,5ML ONE (10:36)
[2019-05-10] MEDS ORDERED: morphine SULFATE 10 MG/ML, 1ML ONE (10:53)
[2019-05-10] MEDS ORDERED: OXYcodone 5 MG/5 ML ORAL.SOL UDC ONE ×2 (10:53→11:21)
[2019-05-10] MEDS: OXYcodone 5 MG/5 ML ORAL.SOL UDC PO PRN ×2 (10:57→11:23)
[2019-05-10] MEDS: MORPHINE SULFATE 4 MG/ML, 1ML IVPush PRN ×2 (10:59→11:13)
[2019-05-10] MEDS ORDERED: DIPHENHYDRAMINE 50 MG/ML, 1ML ONE (12:12)
[2019-05-10] MEDS ORDERED: DIPHENHYDRAMINE 50 MG/ML, 1ML IVPush PRN (12:30)
[2019-05-10] MEDS ORDERED: ONDANSETRON 2MG/ML, 2ML IVPush PRN (12:30)
== END 2019-05-10 12:40 | disposition home or self-care (01) ==
LOC: OUT 08:04
PROVIDERS: ATTEND Colon & Rectal Surgery
DX: K60.3 Anal fistula (principal); K50.90 Crohn's disease, unspecified, without complications; K21.9 Gastro-esophageal reflux disease without esophagitis; F17.210 Nicotine dependence, cigarettes, uncomplicated; Z72.89 Other problems related to lifestyle; Z79.1 Long term (current) use of non-steroidal anti-inflammatories (NSAID); Z79.899 Other long term (current) drug therapy; Z88.0 Allergy status to penicillin; Z88.5 Allergy status to narcotic agent; Z88.8 Allergy status to other drugs, medicaments and biological substances; Z90.710 Acquired absence of both cervix and uterus; Z98.890 Other specified postprocedural states
CPT/HCPCS: 00902; 46020; J0690; J1100; J1200; J1885; J2250; J2270; J2405; J2704; J3010; J7120

== ENCOUNTER 2019-05-19 18:40 | Inpatient (IN) | payer MEDICAID ==
[~2019-05-19] VITALS: Ht 177.8 cm; Wt 67.3 kg
[~2019-05-19 18:40] MED LIST changes: -BUPIVACAINE/EPI 0.5% 1:200K ONE
--- NOTE | 2019-05-19 19:03 | NUR ---
pt with a hx of vre. placed on contact precautions
[2019-05-19] MEDS ORDERED: SODIUM CHLORIDE 0.9% 1,000ML IVBOLUS ONE (20:00)
[2019-05-19] MEDS ORDERED: ONDANSETRON 2MG/ML, 2ML IVPush ONE (20:00)
[2019-05-19] MEDS ORDERED: CEFTRIAXONE PMX 1GM/50ML 50 ML IVPB ONE (20:00)
--- NOTE | 2019-05-19 20:03 | NUR ---
JINA FROM LAB IN TO DRAW BLOOD AND CULTURES. ROBB IN TO START IV.
[2019-05-19] MEDS ORDERED: CEFTRIAXONE PMX 1GM/50ML 50 ML ONE (20:18)
[2019-05-19] MEDS ORDERED: ONDANSETRON 2MG/ML, 2ML ONE (20:18)
[2019-05-19] MEDS ORDERED: MORPHINE SULFATE 4 MG/ML, 1ML ONE ×2 (20:18→21:31)
[2019-05-19 20:28] LABS: BASOPHILS # (AUTO) 0.02 x10^3/uL (0-0.1); BASOPHILS % (AUTO) 0 % (0-1); EOSINOPHILS # (AUTO) 0.32 x10^3/uL (0-0.4); EOSINOPHILS % (AUTO) 3 % (1-7); LYMPHOCYTES # (AUTO) 1.45 x10^3/uL (1-3.4); LYMPHOCYTES % (AUTO) 12 % (22-44); MD NO; MEAN CORPUSCULAR HEMOGLOBIN 30.5 pg (27.0-34.8); MEAN CORPUSCULAR HGB CONC 32.7 g/dL (32.4-35.8); MEAN CORPUSCULAR VOLUME 93.2 fL (80-100); MONOCYTES # (AUTO) 0.83 x10^3/uL (0.2-0.8); MONOCYTES % (AUTO) 7 % (2-9); NEUTROPHILS # (AUTO) 10.02 x10^3/uL (1.8-6.8); NEUTROPHILS % (AUTO) 79 % (42-75); PLATELET COUNT 352 x10^3/uL (130-400); RED BLOOD COUNT 4.22 x10^6/uL (3.82-5.3); RED CELL DISTRIBUTION WIDTH 18.4 % (9.6-15.2)
--- NOTE | 2019-05-19 20:29 | NUR ---
TASK RN: REPORT TO KEEGAN CRUZ ON FLOOR PRIMARY RN IS UNAVAILABLE.
[2019-05-19 20:32] LABS: ALANINE AMINOTRANSFERASE 24 U/L (12-78); ALBUMIN 3.3 g/dL (3.4-5.0); ANION GAP 4 mmol/L (5-15); CALCIUM 8.4 mg/dL (8.5-10.1); CHLORIDE 109 mmol/L (98-107); CREATININE 0.79 mg/dL (0.55-1.02)
[2019-05-19] MEDS ORDERED: DIPHENHYDRAMINE 50 MG/ML, 1ML ONE (20:32)
[2019-05-19 20:34] LABS: ALKALINE PHOSPHATASE 106 U/L (45-117); BILIRUBIN,TOTAL 0.4 mg/dL (0.2-1.0)
[2019-05-19] MEDS: MORPHINE SULFATE 4 MG/ML, 1ML IVPush PRN ×2 (20:35→21:39)
--- NOTE | 2019-05-19 20:54 | NUR ---
TRISHA RN: DR RIVERA IN ROOM UPDATING PATIENT.
[2019-05-19] MEDS ORDERED: DIPHENHYDRAMINE 50 MG/ML, 1ML IVPush ONE (21:30)
[2019-05-19] MEDS ORDERED: morphine SULFATE 10 MG/ML, 1ML IVPush ONE (21:30)
[2019-05-19] MEDS ORDERED: MORPHINE SULFATE 4 MG/ML, 1ML IVPush PRN (21:30)
--- NOTE | 2019-05-19 21:39 | NUR ---
MIGUEL ANGEL AREA CLEANSED WITH SKIN CLEANSERS
[2019-05-19 22:00] VITALS: BP 104/63
[2019-05-19] MEDS ORDERED: ONDANSETRON 2MG/ML, 2ML IVPush PRN (22:00)
[2019-05-19] MEDS ORDERED: ACETAMINOPHEN 325 MG TABLET PO PRN (22:00)
[2019-05-19 22:47] LABS: MICROSCOPIC NOT IND
[2019-05-19 22:50] LABS: CULTURE INDICATED? NO
[2019-05-19] MEDS ORDERED: OMNIPAQUE 350 MG/ML, 100ML BOTTLE ONE (23:28)
[2019-05-20] MEDS: OXYcodone/APAP 5/325MG TABLET PO PRN ×4 (00:25→20:15)
[2019-05-20 00:30] VITALS: BP 101/67
[2019-05-20] MEDS: DIPHENHYDRAMINE 25 MG CAPSULE PO SCH ×4 (01:16→20:15)
[2019-05-20] MEDS: morphine SULFATE 10 MG/ML, 1ML IVPush PRN ×4 (03:22→22:21)
[2019-05-20] MEDS: OMEPRAZOLE 20 MG CAPSULE.DR PO SCH ×2 (05:24→16:08)
[2019-05-20 05:53] LABS: BASOPHILS # (AUTO) 0.03 x10^3/uL (0-0.1); BASOPHILS % (AUTO) 0 % (0-1); EOSINOPHILS # (AUTO) 0.32 x10^3/uL (0-0.4); EOSINOPHILS % (AUTO) 3 % (1-7); LYMPHOCYTES % (AUTO) 18 % (22-44); MD NO; MEAN CORPUSCULAR HEMOGLOBIN 30.2 pg (27.0-34.8); MEAN CORPUSCULAR HGB CONC 31.6 g/dL (32.4-35.8); MEAN CORPUSCULAR VOLUME 95.4 fL (80-100); MEAN PLATELET VOLUME 7.9 fL (7.4-10.4); MONOCYTES # (AUTO) 0.97 x10^3/uL (0.2-0.8); MONOCYTES % (AUTO) 10 % (2-9); NEUTROPHILS # (AUTO) 6.32 x10^3/uL (1.8-6.8); NEUTROPHILS % (AUTO) 68 % (42-75); PLATELET COUNT 297 x10^3/uL (130-400); RED BLOOD COUNT 3.64 x10^6/uL (3.82-5.3); RED CELL DISTRIBUTION WIDTH 18.8 % (9.6-15.2)
[2019-05-20 05:56] LABS: ANION GAP 1 mmol/L (5-15); CALCIUM 7.5 mg/dL (8.5-10.1); CHLORIDE 112 mmol/L (98-107)
[2019-05-20 05:59] LABS: CREATININE 0.61 mg/dL (0.55-1.02)
[2019-05-20 07:17] VITALS: BP 93/63
[2019-05-20] MEDS: METRONIDAZOLE PMX 500MG/100ML 100 ML IV SCH ×3 (07:29→22:21)
[2019-05-20] MEDS: COLESTIPOL 1 GM TABLET PO SCH ×2 (09:00→16:08)
[2019-05-20] MEDS ORDERED: METHOTREXATE 2.5 MG TABLET PO SCH (09:00)
[2019-05-20] MEDS: CYANOCOBALAMIN 1,000 MCG TABLET PO SCH (09:20)
[2019-05-20] MEDS: FOLIC ACID 1 MG TABLET PO SCH (09:22)
[2019-05-20] MEDS: CHOLECALCIFEROL 1,000 UNIT TABLET PO SCH (09:22)
[2019-05-20 14:17] VITALS: BP 94/59
[2019-05-20] MEDS: CEFTRIAXONE PMX 2GM/50ML 50 ML IV SCH (16:08)
[2019-05-20] MEDS: IBUPROFEN 600 MG TABLET PO PRN (16:08)
[2019-05-20 19:36] VITALS: BP 90/52
[2019-05-21 03:59] VITALS: BP 90/46
[2019-05-21] MEDS: DIPHENHYDRAMINE 25 MG CAPSULE PO SCH ×4 (05:35→20:29)
[2019-05-21] MEDS: OXYcodone/APAP 5/325MG TABLET PO PRN ×3 (05:36→20:30)
[2019-05-21 05:52] LABS: BASOPHILS # (AUTO) 0.02 x10^3/uL (0-0.1); BASOPHILS % (AUTO) 0 % (0-1); EOSINOPHILS # (AUTO) 0.31 x10^3/uL (0-0.4); EOSINOPHILS % (AUTO) 3 % (1-7); LYMPHOCYTES # (AUTO) 1.18 x10^3/uL (1-3.4); LYMPHOCYTES % (AUTO) 12 % (22-44); MD NO; MEAN CORPUSCULAR HEMOGLOBIN 30.8 pg (27.0-34.8); MEAN CORPUSCULAR HGB CONC 32.1 g/dL (32.4-35.8); MEAN PLATELET VOLUME 8.3 fL (7.4-10.4); MONOCYTES % (AUTO) 7 % (2-9); NEUTROPHILS # (AUTO) 7.44 x10^3/uL (1.8-6.8); NEUTROPHILS % (AUTO) 77 % (42-75); PLATELET COUNT 285 x10^3/uL (130-400); RED BLOOD COUNT 3.34 x10^6/uL (3.82-5.3); RED CELL DISTRIBUTION WIDTH 18.7 % (9.6-15.2)
[2019-05-21 05:59] LABS: ANION GAP 6 mmol/L (5-15); CALCIUM 7.4 mg/dL (8.5-10.1); CHLORIDE 113 mmol/L (98-107); CREATININE 0.61 mg/dL (0.55-1.02)
[2019-05-21] MEDS: OMEPRAZOLE 20 MG CAPSULE.DR PO SCH ×2 (06:32→17:28)
[2019-05-21] MEDS: METRONIDAZOLE PMX 500MG/100ML 100 ML IV SCH ×3 (06:32→23:39)
[2019-05-21] MEDS: IBUPROFEN 600 MG TABLET PO PRN ×2 (06:34→20:29)
[2019-05-21] MEDS ORDERED: POTASSIUM CHLORIDE 20 MEQ TAB.ER.PRT PO ONE (07:00)
[2019-05-21 07:28] VITALS: BP 101/66
[2019-05-21] MEDS ORDERED: MAGNESIUM SULFATE PMX 2GM/50ML 50 ML IV ONE (08:00)
[2019-05-21] MEDS: morphine SULFATE 10 MG/ML, 1ML IVPush PRN ×3 (13:57→23:44)
[2019-05-21 14:00] VITALS: BP 106/71
[2019-05-21] MEDS ORDERED: POTASSIUM CHLORIDE 20 MEQ TAB.ER.PRT ONE (15:32)
[2019-05-21] MEDS: CHOLECALCIFEROL 1,000 UNIT TABLET PO SCH (15:41)
[2019-05-21] MEDS: FOLIC ACID 1 MG TABLET PO SCH (15:41)
[2019-05-21] MEDS: COLESTIPOL 1 GM TABLET PO SCH (15:42)
[2019-05-21] MEDS: CYANOCOBALAMIN 1,000 MCG TABLET PO SCH (15:42)
[2019-05-21] MEDS: CEFTRIAXONE PMX 2GM/50ML 50 ML IV SCH (17:42)
[2019-05-21 20:17] VITALS: BP 101/67
[2019-05-22 02:30] VITALS: BP 93/58
[2019-05-22] MEDS: IBUPROFEN 600 MG TABLET PO PRN (05:39)
[2019-05-22] MEDS: DIPHENHYDRAMINE 25 MG CAPSULE PO SCH ×2 (05:40→11:50)
[2019-05-22] MEDS: OXYcodone/APAP 5/325MG TABLET PO PRN ×2 (05:40→11:51)
[2019-05-22] MEDS: OMEPRAZOLE 20 MG CAPSULE.DR PO SCH (06:13)
[2019-05-22 07:09] VITALS: BP 99/65
[2019-05-22] MEDS: morphine SULFATE 10 MG/ML, 1ML IVPush PRN (07:47)
[2019-05-22] MEDS: CHOLECALCIFEROL 1,000 UNIT TABLET PO SCH (08:12)
[2019-05-22] MEDS: COLESTIPOL 1 GM TABLET PO SCH (08:12)
[2019-05-22] MEDS: METRONIDAZOLE PMX 500MG/100ML 100 ML IV SCH (08:12)
[2019-05-22] MEDS: FOLIC ACID 1 MG TABLET PO SCH (08:13)
[2019-05-22] MEDS: CYANOCOBALAMIN 1,000 MCG TABLET PO SCH (08:13)
[2019-05-22] MEDS ORDERED: METR500T PO (13:25)
[2019-05-22] MEDS ORDERED: CEPH-368 PO (13:25)
[2019-05-22 13:58] VITALS: BP 104/67
== END 2019-05-22 14:50 | disposition home or self-care (01) | DRG 920 ==
LOC: ED 18:56 → EDIP 20:27 → 4NE 22:00 → 4EST 05-21 12:31 → 4NE 05-21 12:31 → DCLOUNGE 05-22 14:44
PROVIDERS: ADMIT Family Medicine; ATTEND Hospitalist
DX: K91.872 Postprocedural seroma of a digestive system organ or structure following a digestive system procedure (principal); N82.3 Fistula of vagina to large intestine; K50.90 Crohn's disease, unspecified, without complications; D72.829 Elevated white blood cell count, unspecified; E87.6 Hypokalemia; F17.210 Nicotine dependence, cigarettes, uncomplicated; L29.9 Pruritus, unspecified; K62.89 Other specified diseases of anus and rectum; N89.8 Other specified noninflammatory disorders of vagina; T40.695A Adverse effect of other narcotics, initial encounter; Y83.8 Other surgical procedures as the cause of abnormal reaction of the patient, or of later complication, without mention of misadventure at the time of the procedure; Z90.710 Acquired absence of both cervix and uterus; Y92.098 Other place in other non-institutional residence as the place of occurrence of the external cause; Z90.49 Acquired absence of other specified parts of digestive tract; Z79.899 Other long term (current) drug therapy; Z88.0 Allergy status to penicillin; Z88.5 Allergy status to narcotic agent; Z88.8 Allergy status to other drugs, medicaments and biological substances; Z88.1 Allergy status to other antibiotic agents
CPT/HCPCS: 36415; 72193; 74270; 80048; 80053; 81003; 83605; 83735; 85025; 87040; 96365; 96375; 96376; G0378; J0696; J8610; Q9967; J1200; J2270; J3475; J7030; Q0163

== ENCOUNTER → 2020-10-31 | Outpatient (CLI) | payer MEDICARE, MEDICAID ==
[~2020-10-31] MED LIST changes: +CEPH-368 PO; +DIPH-540 PO; +DIPH1TAB PO; -FOLI-17 PO; +FOLI1TAB32 PO; +HYDR1KIT TP; +IBUP200T64 PO; -OXYC-302 PO; -OXYC-306 PO; +OXYC1TAB14 PO; +OXYC1TAB17 PO; +SULF-23 PO; -SULF1TAB24 PO
[2020-10-31 12:32] LABS: BASOPHILS % (AUTO) 0 % (0-1); EOSINOPHILS % (AUTO) 3 % (1-7); LYMPHOCYTES % (AUTO) 18 % (22-44); MEAN CORPUSCULAR HEMOGLOBIN 34.2 pg (27.0-34.8); MEAN CORPUSCULAR HGB CONC 33.8 g/dL (32.4-35.8); MEAN PLATELET VOLUME 7.6 fL (7.4-10.4); MONOCYTES % (AUTO) 9 % (2-9); NEUTROPHILS % (AUTO) 70 % (42-75); PLATELET COUNT 311 x10^3/uL (130-400); RED BLOOD COUNT 3.99 x10^6/uL (3.82-5.3); RED CELL DISTRIBUTION WIDTH 14.7 % (9.6-15.2)
[2020-10-31 12:33] LABS: MD NO
[2020-10-31 12:42] LABS: ALBUMIN 3.4 g/dL (3.4-5.0); ANION GAP 3 mmol/L (5-15); CALCIUM 8.7 mg/dL (8.5-10.1); CHLORIDE 110 mmol/L (98-107)
[2020-10-31 12:46] LABS: ALANINE AMINOTRANSFERASE 32 U/L (12-78); ALKALINE PHOSPHATASE 109 U/L (45-117); BILIRUBIN,TOTAL 0.4 mg/dL (0.2-1.0); CREATININE 0.68 mg/dL (0.55-1.02); TOTAL PROTEIN 7.8 g/dL (6.4-8.2)
== END | disposition home or self-care (01) ==
LOC: STAR 11:18
PROVIDERS: ATTEND Colon & Rectal Surgery
DX: Z01.812 Encounter for preprocedural laboratory examination (principal); Z20.822 Contact with and (suspected) exposure to COVID-19
CPT/HCPCS: 36415; 80053; 85025; 93005; U0003; U0005

== ENCOUNTER → 2020-11-03 | Outpatient (CLI) | payer MEDICARE, MEDICAID | END | disposition home or self-care (01) | LOC: WOUND 09:10 | PROVIDERS: ATTEND Internal Medicine | DX: Z43.3 Encounter for attention to colostomy (principal); K50.90 Crohn's disease, unspecified, without complications; F17.210 Nicotine dependence, cigarettes, uncomplicated; Z90.710 Acquired absence of both cervix and uterus; Z88.0 Allergy status to penicillin; Z20.822 Contact with and (suspected) exposure to COVID-19 | CPT/HCPCS: G0463 ==

== ENCOUNTER → 2020-11-25 | Outpatient (CLI) | payer MEDICARE, MEDICAID ==
[~2020-11-25] MED LIST changes: +OXYC10SY PO
== END | disposition home or self-care (01) ==
LOC: WOUND 08:28
PROVIDERS: ATTEND Internal Medicine
DX: L98.491 Non-pressure chronic ulcer of skin of other sites limited to breakdown of skin (principal); K50.913 Crohn's disease, unspecified, with fistula; F17.210 Nicotine dependence, cigarettes, uncomplicated; Z90.710 Acquired absence of both cervix and uterus; Z88.0 Allergy status to penicillin; Z20.822 Contact with and (suspected) exposure to COVID-19; Z43.3 Encounter for attention to colostomy; Z88.5 Allergy status to narcotic agent; Z88.8 Allergy status to other drugs, medicaments and biological substances
CPT/HCPCS: G0463